=== PATIENT | female | born 1955 | race Caucasian/White ===

== ENCOUNTER 2019-02-18 19:34 | Emergency (ER) | payer MEDICAID ==
[~2019-02-18] VITALS: Ht 167.6 cm; Wt 54.5 kg
[2019-02-18 19:40] VITALS: BP 178/111
--- NOTE | 2019-02-18 19:50 | NUR ---
PT PLACED WITHIN VIEW OF NURSES STATION IN WHEELCHAIR FOR PT SAFETY TRIAGE NOTES THAT PT HAS BEEN DRINKING.
--- NOTE | 2019-02-18 19:52 | NUR ---
PT REQUESTING FOOD AND STATING SHE WANTS TO LEAVE, ENCOURAGED TO STAY, AWAITING ERP. PT UP TO BR WITH STEADY GAIT.
--- NOTE | 2019-02-18 20:03 | NUR ---
PT ELOPED FROM ER, ENCOURAGED TO WAIT FOR ERP ASSESSMENT.
== END 2019-02-18 20:39 | disposition left against medical advice (07) ==
LOC: ED 20:19
DX: R51 Headache (principal); Z53.21 Procedure and treatment not carried out due to patient leaving prior to being seen by health care provider

== ENCOUNTER 2019-11-11 17:17 | Inpatient (IN) | payer MEDICAID, OTHER ==
[~2019-11-11] VITALS: Ht 165.1 cm; Wt 56.8 kg
--- NOTE | 2019-11-11 17:44 | NUR ---
TO ROOM FROM [facility]. EKG COMPLETE.
--- NOTE | 2019-11-11 18:16 | NUR ---
PT BIB [facility] FOR C/O PALPITATIONS. PT WAS AT THE [facility] AND BEGAN TO FEEL ABNORMAL AND WEAK, SHE SAT ON THE BENCH AND COULDT GET UP. PT DENIES CP, SOB. PT DOES STATES SHE FEELS SLIGHTLY ANXIOUS AND HAS FOR THE LAST FEW WEEKS. PT ALSO REPORTS RECENT HX OF DIARRHEA X3 WEEKS. PT TO CARD MONITOR, CONT PULSE OX AND BP
[2019-11-11] MEDS ORDERED: THIAMINE 100MG TABLET ONE (18:21)
[2019-11-11] MEDS ORDERED: SODIUM CHLORIDE 0.9% 1,000ML IVBOLUS ONE (18:30)
[2019-11-11] MEDS: PLEASE ENTER ALLERGIES MC SCH ×2 (18:30→22:22)
[2019-11-11] MEDS ORDERED: THIAMINE 100MG TABLET PO ONE (18:30)
[2019-11-11] MEDS ORDERED: SODIUM CHLORIDE FLUSH 10ML SYR IVF ONE (18:30)
[2019-11-11 18:44] LABS: BASOPHILS # (AUTO) 0.03 x10^3/uL (0-0.1); BASOPHILS % (AUTO) 1 % (0-1); EOSINOPHILS # (AUTO) 0.02 x10^3/uL (0-0.4); EOSINOPHILS % (AUTO) 0 % (1-7); LYMPHOCYTES # (AUTO) 1.32 x10^3/uL (1-3.4); LYMPHOCYTES % (AUTO) 19 % (22-44); MD NO; MEAN CORPUSCULAR HEMOGLOBIN 34.2 pg (27.0-34.8); MEAN CORPUSCULAR HGB CONC 33.8 g/dL (32.4-35.8); MEAN CORPUSCULAR VOLUME 101.3 fL (80-100); MEAN PLATELET VOLUME 7.8 fL (7.4-10.4); MONOCYTES # (AUTO) 0.58 x10^3/uL (0.2-0.8); MONOCYTES % (AUTO) 8 % (2-9); NEUTROPHILS # (AUTO) 5.09 x10^3/uL (1.8-6.8); NEUTROPHILS % (AUTO) 72 % (42-75); PLATELET COUNT 242 x10^3/uL (130-400); RED BLOOD COUNT 3.14 x10^6/uL (3.82-5.3); RED CELL DISTRIBUTION WIDTH 17.1 % (9.6-15.2)
[2019-11-11 18:56] LABS: ALANINE AMINOTRANSFERASE 54 U/L (12-78); ANION GAP 10 mmol/L (5-15); CALCIUM 8.9 mg/dL (8.5-10.1); CHLORIDE 98 mmol/L (98-107)
[2019-11-11 19:04] LABS: ALKALINE PHOSPHATASE 75 U/L (45-117); BILIRUBIN,TOTAL 0.9 mg/dL (0.2-1.0); CREATININE 1.62 mg/dL (0.55-1.02); TOTAL PROTEIN 7.8 g/dL (6.4-8.2); TROPONIN I < 0.015 ng/mL (0.000-0.045)
--- NOTE | 2019-11-11 19:42 | NUR ---
PATIENT ASSISTED TO USED BEDSIDE COMMODE, VERY SHAKY. URINE OBTAINED AND SENT TO LAB.
--- NOTE | 2019-11-11 19:57 | NUR ---
PATIENT TOO WEAK AND UNSTEADY TO AMBULATE. AWARE.
[2019-11-11 20:09] LABS: MICROSCOPIC AUTO
--- NOTE | 2019-11-11 20:11 | NUR ---
RECEIVED PATIENT WITH SKIN TEAR ON HER LEFT FOREARM, NON ADHERENT DRESSING APPLIED.
[2019-11-11 20:14] LABS: CULTURE INDICATED? YES
[2019-11-11 20:20] LABS: AMPHETAMINE SCREEN, URINE Negative (Negative); BARBITURATE SCREEN, URINE Negative (Negative); BENZODIAZEPINE SCREEN, URINE Positive (Negative); CANNABINOID SCREEN, URINE Negative (Negative); COCAINE SCREEN, URINE Negative (Negative); METHADONE SCREEN, URINE Negative (Negative); OPIATE SCREEN, URINE Negative (Negative)
--- NOTE | 2019-11-11 20:46 | NUR ---
BED ASSIGNED. REPORT TO CHEYENNE CORTES.
[2019-11-11 21:05] VITALS: BP 151/92
[2019-11-11] MEDS ORDERED: DOCUSATE 100 MG CAPSULE PO PRN (22:00)
[2019-11-11] MEDS ORDERED: LIDODERM 5% PATCH TD PRN (22:00)
[2019-11-11] MEDS ORDERED: ONDANSETRON ODT 4 MG PO PRN (22:00)
[2019-11-11] MEDS ORDERED: hydrALAzine 20 MG/ML, 1ML IVPush PRN (22:00)
[2019-11-11] MEDS: HEPARIN 5,000 UNITS/ML, 1ML SQ SCH (22:30)
[2019-11-11] MEDS: TIZANIDINE 4MG TABLET PO SCH (22:41)
[2019-11-11] MEDS ORDERED: LIDODERM REMOVE PATCH NOTE XX PRN (23:00)
[2019-11-11] MEDS: TEMAZEPAM 15 MG CAPSULE PO PRN (23:05)
[2019-11-11] MEDS ORDERED: MAGNESIUM SULFATE PMX 4GM/100M 100 ML IV ONE (23:30)
[2019-11-12 01:10] LABS: TROPONIN I < 0.015 ng/mL (0.000-0.045)
[2019-11-12 01:59] VITALS: BP 113/76
[2019-11-12] MEDS: HEPARIN 5,000 UNITS/ML, 1ML SQ SCH ×3 (04:42→21:56)
[2019-11-12 07:34] LABS: BASOPHILS # (AUTO) 0.02 x10^3/uL (0-0.1); BASOPHILS % (AUTO) 1 % (0-1); EOSINOPHILS # (AUTO) 0.32 x10^3/uL (0-0.4); EOSINOPHILS % (AUTO) 8 % (1-7); LYMPHOCYTES # (AUTO) 1.42 x10^3/uL (1-3.4); LYMPHOCYTES % (AUTO) 35 % (22-44); MD NO; MEAN CORPUSCULAR HEMOGLOBIN 33.9 pg (27.0-34.8); MEAN CORPUSCULAR HGB CONC 32.8 g/dL (32.4-35.8); MEAN CORPUSCULAR VOLUME 103.3 fL (80-100); MEAN PLATELET VOLUME 7.8 fL (7.4-10.4); MONOCYTES # (AUTO) 0.48 x10^3/uL (0.2-0.8); MONOCYTES % (AUTO) 12 % (2-9); NEUTROPHILS # (AUTO) 1.88 x10^3/uL (1.8-6.8); NEUTROPHILS % (AUTO) 46 % (42-75); PLATELET COUNT 191 x10^3/uL (130-400); RED BLOOD COUNT 2.81 x10^6/uL (3.82-5.3); RED CELL DISTRIBUTION WIDTH 17.2 % (9.6-15.2)
[2019-11-12 07:43] LABS: ANION GAP 9 mmol/L (5-15); CALCIUM 8.2 mg/dL (8.5-10.1); CHLORIDE 102 mmol/L (98-107); CREATININE 1.45 mg/dL (0.55-1.02)
[2019-11-12 07:45] VITALS: BP 128/80
[2019-11-12 07:47] LABS: TROPONIN I < 0.015 ng/mL (0.000-0.045)
[2019-11-12] MEDS: PLEASE ENTER ALLERGIES MC SCH (10:30)
[2019-11-12] MEDS: TIZANIDINE 4MG TABLET PO SCH ×2 (10:30→21:56)
[2019-11-12 13:15] VITALS: BP 109/71
[2019-11-12] MEDS: SODIUM CHLORIDE 0.9% 1,000 ML IV SCH (16:42)
[2019-11-12 20:21] VITALS: BP 144/93
[2019-11-12] MEDS: TEMAZEPAM 15 MG CAPSULE PO PRN (21:56)
[2019-11-12] MEDS: ACETAMINOPHEN 325 MG TABLET PO PRN (21:56)
[2019-11-13 01:10] VITALS: BP 112/75
[2019-11-13] MEDS: SODIUM CHLORIDE 0.9% 1,000 ML IV SCH ×2 (03:32→11:22)
[2019-11-13 07:13] LABS: ANION GAP 8 mmol/L (5-15); CALCIUM 7.9 mg/dL (8.5-10.1); CHLORIDE 105 mmol/L (98-107)
[2019-11-13 07:41] VITALS: BP 159/96
[2019-11-13] MEDS: TIZANIDINE 4MG TABLET PO SCH ×2 (08:06→21:00)
[2019-11-13] MEDS: HEPARIN 5,000 UNITS/ML, 1ML SQ SCH ×3 (08:07→21:00)
[2019-11-13] MEDS: ACETAMINOPHEN 325 MG TABLET PO PRN (11:21)
[2019-11-13 12:46] VITALS: BP 143/85
[2019-11-13 19:18] VITALS: BP 165/101
[2019-11-13 20:58] VITALS: BP 165/94
[2019-11-13] MEDS: TEMAZEPAM 15 MG CAPSULE PO PRN (21:00)
[2019-11-14 01:31] VITALS: BP 149/93
[2019-11-14] MEDS: HEPARIN 5,000 UNITS/ML, 1ML SQ SCH ×4 (05:19→22:04)
[2019-11-14 06:42] VITALS: BP 169/101
[2019-11-14] MEDS ORDERED: ATEN50TA41 PO (08:36)
[2019-11-14] MEDS ORDERED: LOSA25TA12 PO (08:36)
[2019-11-14] MEDS ORDERED: LISI-170 PO (08:36)
[2019-11-14] MEDS ORDERED: TIZA4TAB2 PO (08:36)
[2019-11-14] MEDS ORDERED: LORA-445 PO (08:36)
[2019-11-14] MEDS ORDERED: OMEP-110 PO (08:36)
[2019-11-14] MEDS ORDERED: SERT-237 PO (08:36)
[2019-11-14] MEDS: TIZANIDINE 4MG TABLET PO SCH ×2 (08:43→20:02)
[2019-11-14] MEDS ORDERED: LORazepam 0.5MG TABLET PO PRN (09:30)
[2019-11-14] MEDS: OMEPRAZOLE 20 MG CAPSULE.DR PO SCH ×2 (09:53→20:02)
[2019-11-14] MEDS: AMOXICILLIN/CLAV 875-125MG TABLET PO SCH ×2 (09:53→20:02)
[2019-11-14] MEDS: ATENOLOL 50 MG TABLET PO SCH (09:53)
[2019-11-14] MEDS: SERTRALINE 50MG TABLET PO SCH (09:53)
[2019-11-14 13:03] VITALS: BP 164/93
[2019-11-14] MEDS: ACETAMINOPHEN 325 MG TABLET PO PRN (15:09)
[2019-11-14 19:39] VITALS: BP 173/104
[2019-11-14 22:33] VITALS: BP 152/83
[2019-11-14] MEDS: TEMAZEPAM 15 MG CAPSULE PO PRN (22:34)
[2019-11-15 00:33] VITALS: BP 146/91
[2019-11-15] MEDS: ACETAMINOPHEN 325 MG TABLET PO PRN ×2 (00:43→17:15)
[2019-11-15] MEDS: HEPARIN 5,000 UNITS/ML, 1ML SQ SCH ×3 (05:45→20:30)
[2019-11-15 07:24] VITALS: BP 164/95
[2019-11-15] MEDS: AMOXICILLIN/CLAV 875-125MG TABLET PO SCH ×2 (09:00→20:29)
[2019-11-15] MEDS: TIZANIDINE 4MG TABLET PO SCH ×2 (09:04→20:29)
[2019-11-15] MEDS: SERTRALINE 50MG TABLET PO SCH (09:04)
[2019-11-15] MEDS: ATENOLOL 50 MG TABLET PO SCH (09:04)
[2019-11-15] MEDS: OMEPRAZOLE 20 MG CAPSULE.DR PO SCH ×2 (09:04→20:29)
[2019-11-15 14:30] VITALS: BP 158/90
[2019-11-15 18:57] VITALS: BP 153/86
[2019-11-15] MEDS: TEMAZEPAM 15 MG CAPSULE PO PRN (22:28)
[2019-11-16 02:00] VITALS: BP 146/89
[2019-11-16] MEDS: HEPARIN 5,000 UNITS/ML, 1ML SQ SCH ×3 (04:54→21:51)
[2019-11-16 06:15] VITALS: BP 147/85
[2019-11-16] MEDS: OMEPRAZOLE 20 MG CAPSULE.DR PO SCH ×2 (08:11→20:24)
[2019-11-16] MEDS: AMOXICILLIN/CLAV 875-125MG TABLET PO SCH ×2 (08:11→20:24)
[2019-11-16] MEDS: ATENOLOL 50 MG TABLET PO SCH (08:12)
[2019-11-16] MEDS: TIZANIDINE 4MG TABLET PO SCH ×2 (08:12→20:24)
[2019-11-16] MEDS: SERTRALINE 50MG TABLET PO SCH (08:12)
[2019-11-16 08:19] LABS: ANION GAP 7 mmol/L (5-15); CALCIUM 8.9 mg/dL (8.5-10.1); CHLORIDE 104 mmol/L (98-107)
[2019-11-16 08:20] LABS: CREATININE 1.07 mg/dL (0.55-1.02)
[2019-11-16 12:35] VITALS: BP 147/87
[2019-11-16] MEDS: ACETAMINOPHEN 325 MG TABLET PO PRN (14:55)
[2019-11-16 20:16] VITALS: BP 156/86
[2019-11-16] MEDS: SULFAMETH./TRIMETHOPRIM DS 800MG/160MG TABLET PO SCH (20:24)
[2019-11-16] MEDS: TEMAZEPAM 15 MG CAPSULE PO PRN (21:47)
[2019-11-17 01:56] VITALS: BP 137/85
[2019-11-17] MEDS: HEPARIN 5,000 UNITS/ML, 1ML SQ SCH ×3 (04:31→20:12)
[2019-11-17 07:12] VITALS: BP 122/79
[2019-11-17 07:23] LABS: ANION GAP 9 mmol/L (5-15); CALCIUM 9.1 mg/dL (8.5-10.1); CHLORIDE 104 mmol/L (98-107); CREATININE 1.22 mg/dL (0.55-1.02)
[2019-11-17 07:31] LABS: BASOPHILS # (AUTO) 0.02 x10^3/uL (0-0.1); BASOPHILS % (AUTO) 1 % (0-1); EOSINOPHILS % (AUTO) 8 % (1-7); LYMPHOCYTES # (AUTO) 1.33 x10^3/uL (1-3.4); LYMPHOCYTES % (AUTO) 33 % (22-44); MD NO; MEAN CORPUSCULAR HEMOGLOBIN 33.5 pg (27.0-34.8); MEAN CORPUSCULAR HGB CONC 32.7 g/dL (32.4-35.8); MEAN CORPUSCULAR VOLUME 102.4 fL (80-100); MEAN PLATELET VOLUME 8.3 fL (7.4-10.4); MONOCYTES # (AUTO) 0.61 x10^3/uL (0.2-0.8); MONOCYTES % (AUTO) 15 % (2-9); NEUTROPHILS # (AUTO) 1.79 x10^3/uL (1.8-6.8); NEUTROPHILS % (AUTO) 44 % (42-75); PLATELET COUNT 283 x10^3/uL (130-400); RED BLOOD COUNT 3.35 x10^6/uL (3.82-5.3); RED CELL DISTRIBUTION WIDTH 15.8 % (9.6-15.2)
[2019-11-17] MEDS: AMOXICILLIN/CLAV 875-125MG TABLET PO SCH ×2 (08:19→20:05)
[2019-11-17] MEDS: OMEPRAZOLE 20 MG CAPSULE.DR PO SCH ×2 (08:19→20:05)
[2019-11-17] MEDS: ATENOLOL 50 MG TABLET PO SCH (08:19)
[2019-11-17] MEDS: SERTRALINE 50MG TABLET PO SCH (08:19)
[2019-11-17] MEDS: TIZANIDINE 4MG TABLET PO SCH ×2 (08:19→20:05)
[2019-11-17] MEDS: SULFAMETH./TRIMETHOPRIM DS 800MG/160MG TABLET PO SCH ×2 (08:20→20:05)
[2019-11-17] MEDS: ACETAMINOPHEN 325 MG TABLET PO PRN ×2 (14:02→20:10)
[2019-11-17 16:08] VITALS: BP 102/70
[2019-11-17 20:26] VITALS: BP 115/75
[2019-11-17] MEDS: TEMAZEPAM 15 MG CAPSULE PO PRN (22:36)
[2019-11-18 01:33] VITALS: BP 125/79
[2019-11-18 06:34] LABS: BASOPHILS # (AUTO) 0.02 x10^3/uL (0-0.1); BASOPHILS % (AUTO) 1 % (0-1); EOSINOPHILS # (AUTO) 0.29 x10^3/uL (0-0.4); EOSINOPHILS % (AUTO) 7 % (1-7); LYMPHOCYTES # (AUTO) 1.53 x10^3/uL (1-3.4); LYMPHOCYTES % (AUTO) 37 % (22-44); MD NO; MEAN CORPUSCULAR HEMOGLOBIN 33.4 pg (27.0-34.8); MEAN CORPUSCULAR HGB CONC 32.9 g/dL (32.4-35.8); MEAN CORPUSCULAR VOLUME 101.6 fL (80-100); MEAN PLATELET VOLUME 8.5 fL (7.4-10.4); MONOCYTES # (AUTO) 0.72 x10^3/uL (0.2-0.8); MONOCYTES % (AUTO) 18 % (2-9); NEUTROPHILS # (AUTO) 1.55 x10^3/uL (1.8-6.8); NEUTROPHILS % (AUTO) 38 % (42-75); PLATELET COUNT 282 x10^3/uL (130-400); RED BLOOD COUNT 3.12 x10^6/uL (3.82-5.3); RED CELL DISTRIBUTION WIDTH 15.6 % (9.6-15.2)
[2019-11-18 06:41] LABS: ANION GAP 7 mmol/L (5-15); CHLORIDE 104 mmol/L (98-107); CREATININE 1.32 mg/dL (0.55-1.02)
[2019-11-18] MEDS: HEPARIN 5,000 UNITS/ML, 1ML SQ SCH ×3 (06:52→22:37)
[2019-11-18 08:04] VITALS: BP 138/77
[2019-11-18] MEDS: AMOXICILLIN/CLAV 875-125MG TABLET PO SCH ×2 (08:05→20:36)
[2019-11-18] MEDS: ATENOLOL 50 MG TABLET PO SCH (08:06)
[2019-11-18] MEDS: SULFAMETH./TRIMETHOPRIM DS 800MG/160MG TABLET PO SCH (08:06)
[2019-11-18] MEDS: TIZANIDINE 4MG TABLET PO SCH ×2 (08:06→20:36)
[2019-11-18] MEDS: OMEPRAZOLE 20 MG CAPSULE.DR PO SCH ×2 (08:06→20:36)
[2019-11-18] MEDS: SERTRALINE 50MG TABLET PO SCH (08:06)
[2019-11-18 14:28] VITALS: BP 118/73
[2019-11-18] MEDS: ACETAMINOPHEN 325 MG TABLET PO PRN (14:37)
[2019-11-18] MEDS ORDERED: AMOX1TAB12 PO (16:50)
[2019-11-18 18:50] VITALS: BP 114/72
[2019-11-18] MEDS: TEMAZEPAM 15 MG CAPSULE PO PRN (22:37)
[2019-11-19 00:43] VITALS: BP 108/70
[2019-11-19 05:07] LABS: ANION GAP 5 mmol/L (5-15); CALCIUM 8.8 mg/dL (8.5-10.1); CHLORIDE 104 mmol/L (98-107); CREATININE 1.46 mg/dL (0.55-1.02)
[2019-11-19 05:10] LABS: MEAN CORPUSCULAR HEMOGLOBIN 33.6 pg (27.0-34.8); MEAN CORPUSCULAR VOLUME 101.6 fL (80-100); MEAN PLATELET VOLUME 8.1 fL (7.4-10.4); PLATELET COUNT 318 x10^3/uL (130-400); RED BLOOD COUNT 3.05 x10^6/uL (3.82-5.3); RED CELL DISTRIBUTION WIDTH 16.1 % (9.6-15.2)
[2019-11-19 05:38] LABS: MD YES
[2019-11-19 05:39] LABS: EOS#(MANUAL) 0.21 x10^3/uL (0.0-0.4); EOS% (MANUAL) 5 % (1-7); LYMPH#(MANUAL) 1.64 x10^3/uL (1-3.4); LYMPHS% (MANUAL) 39 % (22-44); MONOS#(MANUAL) 0.84 x10^3/uL (0.3-2.7); MONOS% (MANUAL) 20 % (2-9); SEG#(MANUAL) 1.51 x10^3/uL (1.8-6.8); SEGS% (MANUAL) 36 % (42-75)
[2019-11-19 05:40] LABS: <PLATELET ESTIMATE> ADEQUATE; <PLT MORPHOLOGY> NORMAL PLT MORPH; ANISOCYTOSIS 1+
[2019-11-19] MEDS: HEPARIN 5,000 UNITS/ML, 1ML SQ SCH ×3 (06:16→22:38)
[2019-11-19 08:03] VITALS: BP 110/70
[2019-11-19] MEDS: AMOXICILLIN/CLAV 875-125MG TABLET PO SCH ×2 (10:06→21:01)
[2019-11-19] MEDS: OMEPRAZOLE 20 MG CAPSULE.DR PO SCH ×2 (10:06→21:02)
[2019-11-19] MEDS: TIZANIDINE 4MG TABLET PO SCH ×2 (10:06→21:02)
[2019-11-19] MEDS: SERTRALINE 50MG TABLET PO SCH (10:07)
[2019-11-19] MEDS: ATENOLOL 50 MG TABLET PO SCH (10:07)
[2019-11-19 12:32] VITALS: BP 129/79
[2019-11-19] MEDS: ACETAMINOPHEN 325 MG TABLET PO PRN ×2 (14:57→21:01)
[2019-11-19 20:39] VITALS: BP 124/75
[2019-11-19] MEDS: TEMAZEPAM 15 MG CAPSULE PO PRN (22:37)
[2019-11-20 01:03] VITALS: BP 118/73
[2019-11-20] MEDS: HEPARIN 5,000 UNITS/ML, 1ML SQ SCH ×2 (06:25→16:00)
[2019-11-20 06:29] LABS: ANION GAP 9 mmol/L (5-15); CALCIUM 9.3 mg/dL (8.5-10.1); CHLORIDE 105 mmol/L (98-107); CREATININE 1.23 mg/dL (0.55-1.02); MEAN CORPUSCULAR HEMOGLOBIN 33.7 pg (27.0-34.8); MEAN CORPUSCULAR HGB CONC 33.1 g/dL (32.4-35.8); MEAN CORPUSCULAR VOLUME 101.9 fL (80-100); PLATELET COUNT 344 x10^3/uL (130-400); RED BLOOD COUNT 3.18 x10^6/uL (3.82-5.3); RED CELL DISTRIBUTION WIDTH 15.8 % (9.6-15.2)
[2019-11-20 06:47] LABS: MD YES
[2019-11-20 06:49] LABS: ANISOCYTOSIS 1+; LYMPH#(MANUAL) 2.07 x10^3/uL (1-3.4); LYMPHS% (MANUAL) 56 % (22-44); MONOS#(MANUAL) 0.22 x10^3/uL (0.3-2.7); MONOS% (MANUAL) 6 % (2-9); SEG#(MANUAL) 1.41 x10^3/uL (1.8-6.8); SEGS% (MANUAL) 38 % (42-75)
[2019-11-20 06:50] LABS: <PLATELET ESTIMATE> ADEQUATE; <PLT MORPHOLOGY> NORMAL PLT MORPH; HYPOCHROMIA 1+
[2019-11-20 08:01] VITALS: BP 139/77
[2019-11-20] MEDS: TIZANIDINE 4MG TABLET PO SCH (09:00)
[2019-11-20] MEDS: ATENOLOL 50 MG TABLET PO SCH (09:00)
[2019-11-20] MEDS: SERTRALINE 50MG TABLET PO SCH (09:00)
[2019-11-20] MEDS: AMOXICILLIN/CLAV 875-125MG TABLET PO SCH (09:00)
[2019-11-20] MEDS: OMEPRAZOLE 20 MG CAPSULE.DR PO SCH (09:00)
[2019-11-20 12:36] VITALS: BP 108/74
== END 2019-11-20 18:10 | disposition home or self-care (01) | DRG 689 ==
LOC: ED 21:04 → 4WST 21:10
PROVIDERS: ADMIT Family Medicine; ATTEND Hospitalist
DX: N39.0 Urinary tract infection, site not specified (principal); N17.0 Acute kidney failure with tubular necrosis; E87.1 Hypo-osmolality and hyponatremia; L03.114 Cellulitis of left upper limb; D53.9 Nutritional anemia, unspecified; E83.42 Hypomagnesemia; B95.62 Methicillin resistant Staphylococcus aureus infection as the cause of diseases classified elsewhere; G89.29 Other chronic pain; I12.9 Hypertensive chronic kidney disease with stage 1 through stage 4 chronic kidney disease, or unspecified chronic kidney disease; K52.9 Noninfective gastroenteritis and colitis, unspecified; N18.9 Chronic kidney disease, unspecified; R29.6 Repeated falls; R62.7 Adult failure to thrive; S51.812A Laceration without foreign body of left forearm, initial encounter; X58.XXXA Exposure to other specified factors, initial encounter; Y93.89 Activity, other specified; Y92.89 Other specified places as the place of occurrence of the external cause; Y99.8 Other external cause status; Z82.49 Family history of ischemic heart disease and other diseases of the circulatory system; Z82.3 Family history of stroke
CPT/HCPCS: 36415; 71045; 80048; 80053; 80307; 81001; 82607; 83036; 83605; 83735; 84443; 84484; 85025; 87070; 87077; 87086; 87147; 87186; 87205; 93005; 93306; 93356; 96360; G0378; J1644; J0360; J3475; J7030

== ENCOUNTER 2020-02-14 13:48 | Emergency (ER) | payer SELFPAY ==
[~2020-02-14] VITALS: Ht 165.1 cm; Wt 70.0 kg
[~2020-02-14 13:48] MED LIST: AMOX1TAB12 PO; ATEN50TA41 PO; LISI-170 PO; LORA-445 PO; LOSA25TA12 PO; OMEP-110 PO; SERT-237 PO; TIZA4TAB2 PO
--- NOTE | 2020-02-14 14:09 | NUR ---
BIB BY [facility] FROM HOME FOR 01/14 SUBSTERNAL CHEST PAIN X 2 DAYS. LEFT AMA FROM [facility] FOR SAME YESTERDAY D/T SOCIAL SITUATION. GIVEN ASA BY [facility] ECG OBTAINED ALSO COMPLAINING OF SORE THROAT/COUGH
[2020-02-14 15:11] LABS: MD YES; MEAN CORPUSCULAR HEMOGLOBIN 34.3 pg (27.0-34.8); MEAN CORPUSCULAR HGB CONC 33.5 g/dL (32.4-35.8); MEAN CORPUSCULAR VOLUME 102.3 fL (80-100); MEAN PLATELET VOLUME 8.4 fL (7.4-10.4); PLATELET COUNT 337 x10^3/uL (130-400); RED BLOOD COUNT 3.68 x10^6/uL (3.82-5.3); RED CELL DISTRIBUTION WIDTH 15.9 % (9.6-15.2)
[2020-02-14 15:14] LABS: ALANINE AMINOTRANSFERASE 57 U/L (12-78); ALBUMIN 3.4 g/dL (3.4-5.0); ANION GAP 13 mmol/L (5-15); CALCIUM 8.8 mg/dL (8.5-10.1); CHLORIDE 101 mmol/L (98-107); CREATININE 1.62 mg/dL (0.55-1.02)
--- NOTE | 2020-02-14 15:18 | NUR ---
ORACLE SPECIALIST: DOG IN [facility]. WALKED AND PLAYED WITH AND RTD TO [facility]. FRESH WATER IN [place]
[2020-02-14 15:19] LABS: ALKALINE PHOSPHATASE 107 U/L (45-117); BILIRUBIN,TOTAL 0.3 mg/dL (0.2-1.0); TOTAL PROTEIN 7.6 g/dL (6.4-8.2); TROPONIN I < 0.015 ng/mL (0.000-0.045)
--- NOTE | 2020-02-14 15:21 | NUR ---
Pt ambulated to the restroom with steady gait. Went over results. Pt has no pain at this time.
[2020-02-14 15:54] LABS: BASOS#(MANUAL) 0.08 x10^3/uL (0-0.1); BASOS% (MANUAL) 2 % (0-1); EOS#(MANUAL) 0.13 x10^3/uL (0.0-0.4); EOS% (MANUAL) 3 % (1-7); LYMPH#(MANUAL) 1.64 x10^3/uL (1-3.4); LYMPHS% (MANUAL) 39 % (22-44); MONOS#(MANUAL) 0.55 x10^3/uL (0.3-2.7); MONOS% (MANUAL) 13 % (2-9); SEG#(MANUAL) 1.81 x10^3/uL (1.8-6.8); SEGS% (MANUAL) 43 % (42-75)
[2020-02-14 15:57] LABS: <PLATELET ESTIMATE> ADEQUATE; <PLT MORPHOLOGY> NORMAL PLT MORPH
[2020-02-14 16:36] VITALS: BP 147/81
--- NOTE | 2020-02-14 16:51 | NUR ---
DOG RTD TO PATIENT
== END 2020-02-14 16:37 | disposition home or self-care (01) ==
LOC: ED 13:58
DX: I27.20 Pulmonary hypertension, unspecified (principal); K82.8 Other specified diseases of gallbladder; I13.10 Hypertensive heart and chronic kidney disease without heart failure, with stage 1 through stage 4 chronic kidney disease, or unspecified chronic kidney disease; N18.9 Chronic kidney disease, unspecified
CPT/HCPCS: 36415; 71045; 80053; 83880; 84145; 84484; 85025; 93005; 99285

== ENCOUNTER 2020-02-14 17:37 | Emergency (ER) | payer MEDICAID, OTHER ==
--- NOTE | 2020-02-14 17:50 | NUR ---
BULB PACKER AWARE OF PT/COMPLAINT. VITAL STABLE. PT SPEAKING IN FULL SENTENCES WO DIFFICULTY. SPO2 >90% ON RA. PT LOBBIED AFTER TRIAGE.
--- NOTE | 2020-02-14 18:24 | NUR ---
YARD DRIVER: PT AMBULATORY TO ROOM FROM [facility]. PTS DOG PLACED IN [place]. WATER AVAILABLE IN [place] FOR DOG.
[2020-02-14] MEDS ORDERED: ONDANSETRON ODT 4 MG PO ONE (19:00)
[2020-02-14] MEDS ORDERED: ONDANSETRON ODT 4 MG ONE (19:07)
[2020-02-14 19:12] LABS: BASOPHILS # (AUTO) 0.04 x10^3/uL (0-0.1); BASOPHILS % (AUTO) 1 % (0-1); EOSINOPHILS # (AUTO) 0.06 x10^3/uL (0-0.4); EOSINOPHILS % (AUTO) 2 % (1-7); LYMPHOCYTES # (AUTO) 1.21 x10^3/uL (1-3.4); LYMPHOCYTES % (AUTO) 29 % (22-44); MD NO; MEAN CORPUSCULAR HEMOGLOBIN 33.8 pg (27.0-34.8); MEAN CORPUSCULAR HGB CONC 32.8 g/dL (32.4-35.8); MEAN CORPUSCULAR VOLUME 103.3 fL (80-100); MEAN PLATELET VOLUME 8.3 fL (7.4-10.4); MONOCYTES # (AUTO) 0.78 x10^3/uL (0.2-0.8); MONOCYTES % (AUTO) 19 % (2-9); NEUTROPHILS # (AUTO) 2.04 x10^3/uL (1.8-6.8); NEUTROPHILS % (AUTO) 50 % (42-75); PLATELET COUNT 373 x10^3/uL (130-400)
[2020-02-14 19:23] LABS: ALANINE AMINOTRANSFERASE 59 U/L (12-78); ALBUMIN 3.5 g/dL (3.4-5.0); ANION GAP 9 mmol/L (5-15); CALCIUM 8.9 mg/dL (8.5-10.1); CHLORIDE 102 mmol/L (98-107)
[2020-02-14 19:26] LABS: ALKALINE PHOSPHATASE 109 U/L (45-117); BILIRUBIN,TOTAL 0.3 mg/dL (0.2-1.0); CREATININE 2.04 mg/dL (0.55-1.02); TOTAL PROTEIN 7.7 g/dL (6.4-8.2)
--- NOTE | 2020-02-14 20:29 | NUR ---
"PT HAD VODKA IN BED WITH HER WHEN SHE WENT TO CT"- PER LAST WAXER CT ASKED IF I COULD FIND RN TO FIGURE OUT WHAT TO DO. WHEN I TOLD PT WE NEEDED TO TAKE IT FROM HER AND SHE COULD HAVE IT BACK ON DISCHARGE, SHE SAID "YOU CAN JUST DUMP IT OUT. I DONT WANT IT" I ASKED IF SHE WAS SURE AND PT CONFIRMED "PLEASE JUST DUMP IT OUT." VODKA EMPTIED IN SINK IN PT ROOM IN FRONT OF PT
[2020-02-14 22:14] VITALS: BP 144/74
== END 2020-02-14 22:15 | disposition home or self-care (01) ==
LOC: ED 20:29
DX: I12.9 Hypertensive chronic kidney disease with stage 1 through stage 4 chronic kidney disease, or unspecified chronic kidney disease (principal); N18.9 Chronic kidney disease, unspecified; R10.84 Generalized abdominal pain; R11.2 Nausea with vomiting, unspecified; R07.89 Other chest pain; I51.7 Cardiomegaly; Z72.9 Problem related to lifestyle, unspecified
CPT/HCPCS: 36415; 74176; 80053; 83690; 85025; 93005; 99285; Q0162

== ENCOUNTER 2020-02-28 21:25 | Emergency (ER) | payer MEDICARE, OTHER ==
[~2020-02-28] VITALS: Ht 165.1 cm; Wt 76.0 kg
--- NOTE | 2020-02-28 21:51 | NUR ---
THIS TECH DID EKG
[2020-02-28] MEDS ORDERED: SODIUM CHLORIDE 0.9% 1,000ML IVBOLUS ONE (22:00)
[2020-02-28] MEDS ORDERED: SODIUM CHLORIDE FLUSH 10ML SYR IVF ONE (22:00)
[2020-02-28 22:22] LABS: BASOPHILS # (AUTO) 0.07 x10^3/uL (0-0.1); BASOPHILS % (AUTO) 1 % (0-1); EOSINOPHILS # (AUTO) 0.07 x10^3/uL (0-0.4); EOSINOPHILS % (AUTO) 1 % (1-7); LYMPHOCYTES # (AUTO) 2.24 x10^3/uL (1-3.4); LYMPHOCYTES % (AUTO) 30 % (22-44); MD NO; MEAN CORPUSCULAR HEMOGLOBIN 33.6 pg (27.0-34.8); MEAN CORPUSCULAR HGB CONC 33.3 g/dL (32.4-35.8); MEAN CORPUSCULAR VOLUME 100.9 fL (80-100); MEAN PLATELET VOLUME 7.9 fL (7.4-10.4); MONOCYTES # (AUTO) 0.98 x10^3/uL (0.2-0.8); MONOCYTES % (AUTO) 13 % (2-9); NEUTROPHILS # (AUTO) 4.09 x10^3/uL (1.8-6.8); NEUTROPHILS % (AUTO) 55 % (42-75); PLATELET COUNT 523 x10^3/uL (130-400); RED BLOOD COUNT 3.33 x10^6/uL (3.82-5.3); RED CELL DISTRIBUTION WIDTH 15.6 % (9.6-15.2)
[2020-02-28 22:31] LABS: ANION GAP 12 mmol/L (5-15); CALCIUM 8.6 mg/dL (8.5-10.1); CHLORIDE 100 mmol/L (98-107); CREATININE 2.22 mg/dL (0.55-1.02)
[2020-02-28 22:32] LABS: ALBUMIN 3.5 g/dL (3.4-5.0)
[2020-02-28 22:36] LABS: TROPONIN I < 0.015 ng/mL (0.000-0.045)
--- NOTE | 2020-02-28 23:30 | NUR ---
PATIENT AMBULATORY TO RESTROOM WITHOUT COMPLICATIONS, STEADY GAIT. NO NOTED ACUTE DISTRESS.
[2020-02-29 00:33] VITALS: BP 147/74
--- NOTE | 2020-02-29 00:40 | NUR ---
Patient/Caregiver given discharge instructions and they have confirmed that they understand the instructions. Patient ambulatory with steady gait.
== END 2020-02-29 00:41 | disposition home or self-care (01) ==
LOC: ED 02-29 00:10
DX: R06.00 Dyspnea, unspecified (principal); F10.129 Alcohol abuse with intoxication, unspecified; R00.0 Tachycardia, unspecified; R07.9 Chest pain, unspecified; I10 Essential (primary) hypertension; Z91.19 Patient's noncompliance with other medical treatment and regimen; Y90.9 Presence of alcohol in blood, level not specified
CPT/HCPCS: 36415; 71045; 80048; 80307; 82040; 84484; 85025; 85379; 93005; 99285; J7030

== ENCOUNTER 2020-07-16 12:00 | Inpatient (IN) | payer SELFPAY ==
[~2020-07-16] VITALS: Ht 165.1 cm; Wt 69.6 kg
--- NOTE | 2020-07-16 12:17 | NUR ---
PT BROUGHT IN BY [facility] FROM CAR AT [facility] FOR CHIEF COMPLAINT OF "BEING COLD" AND INTERMITTENT SOB FOR ONE WEEK. PT ARRIVED A&O, ADMITS TO ETOH.
[2020-07-16] MEDS ORDERED: SODIUM CHLORIDE FLUSH 10ML SYR IVF ONE ×2 (13:00→17:00)
[2020-07-16 13:32] LABS: BASOPHILS % (AUTO) 0 % (0-1); EOSINOPHILS % (AUTO) 0 % (1-7); LYMPHOCYTES % (AUTO) 15 % (22-44); MEAN CORPUSCULAR HEMOGLOBIN 30.7 pg (27.0-34.8); MEAN CORPUSCULAR HGB CONC 31.9 g/dL (32.4-35.8); MEAN PLATELET VOLUME 7.7 fL (7.4-10.4); MONOCYTES % (AUTO) 14 % (2-9); NEUTROPHILS % (AUTO) 70 % (42-75); PLATELET COUNT 162 x10^3/uL (130-400); RED BLOOD COUNT 3.75 x10^6/uL (3.82-5.3); RED CELL DISTRIBUTION WIDTH 14.7 % (9.6-15.2)
[2020-07-16 13:42] LABS: ALANINE AMINOTRANSFERASE 21 U/L (12-78); ALBUMIN 3.3 g/dL (3.4-5.0); ANION GAP 14 mmol/L (5-15); CALCIUM 8.2 mg/dL (8.5-10.1); CHLORIDE 102 mmol/L (98-107); CREATININE 1.16 mg/dL (0.55-1.02); MD NO
[2020-07-16 13:46] LABS: ALKALINE PHOSPHATASE 122 U/L (45-117); BILIRUBIN,TOTAL 0.5 mg/dL (0.2-1.0); TOTAL PROTEIN 7.7 g/dL (6.4-8.2); TROPONIN I < 0.015 ng/mL (0.000-0.045)
--- NOTE | 2020-07-16 14:04 | NUR ---
PT RESTING IN BED, NO COMPLAINTS AT THIS TIME.
[2020-07-16] MEDS ORDERED: OMNIPAQUE 350 MG/ML, 75ML BOTTLE ONE (15:06)
--- NOTE | 2020-07-16 15:07 | NUR ---
pt to cta
--- NOTE | 2020-07-16 15:57 | NUR ---
PT RESTING IN BED CALL LIGTH IN REACH
--- NOTE | 2020-07-16 16:29 | NUR ---
JANET STONE AT BEDSIDE FOR EVALUATION
[2020-07-16] MEDS ORDERED: SODIUM CHLORIDE 0.9% 1,000ML IVBOLUS ONE (17:00)
[2020-07-16] MEDS ORDERED: THIAMINE 100 MG in SODIUM CHLORIDE 0.9% 50 ML IVPB ONE (17:00)
[2020-07-16] MEDS ORDERED: LORazepam 2 MG/ML, 1ML ONE (17:02)
[2020-07-16] MEDS: LORazepam 2 MG/ML, 1ML IVPush PRN ×2 (17:04→23:56)
--- NOTE | 2020-07-16 17:09 | NUR ---
RECEIVED BEDSIDE REPORT AND CARE FROM STACY QUINN. IVF INFUSING PER ORDER. VSS. CONT PULSE OX, BP, CARDIAC MONITORS IN PLACE. ST ON MONITOR. AWAITING THIAMINE FROM PHARMACY. CALL LIGHT IN REACH. FALL PRECAUTIONS IN PLACE. A&OX4.
--- NOTE | 2020-07-16 17:30 | NUR ---
PT PROVIDED WATER PER MD ORDER, TOLERATING PO WELL. VSS. CALL LIGHT IN REACH
--- NOTE | 2020-07-16 17:55 | NUR ---
THIAMINE RECEIVED FROM PHARMACY. [employer] CALLED FOR IV PUMP FOR INFUSION, AWAITING IV PUMP. 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 UPDATED ON PT STATUS
--- NOTE | 2020-07-16 18:35 | NUR ---
PT CALLED [employer] ARCHITECT LIGHT, REPORTS "I DEFECATED ALL OVER MYSELF AND THE FLOOR, I TRIED TO GET UP BUT DIDN'T MAKE IT FAR. PT REMOVED ALL MONITORS. IV REMAINS IN PLACE, PATENT. IVF COMPLETED. PT CLEANSED OF ALL STOOL AND PROVIDED BEDSIDE COMMODE. PT RESTING IN POSITION OF COMFORT.CLEAN LINENS AND ANTONIO PAD IN PLACE. ALL MONITORS REPLACED. ST ON MONITOR. VSS. DISCUSSED HR WITH ERP, AWARE, NO NEW ORDERS RECEIVED, CONTINUE AWAITING IV PUMP FOR IV THIAMINE. NO TREMORS NOTED AT THIS TIME. A&OX4. CALL LIGHT IN REACH. FALL PRECAUTIONS IN PLACE.
--- NOTE | 2020-07-16 19:30 | NUR ---
IV PUMP RECEIVED, IV THIAMINE INFUSING PER MD ORDER ON IV PUMP. VSS. REMAINS ST ON MONITOR S/P FLUIDS, DISCUSSED WITH ERP AWARE, NO NEW ORDERS RECEIVED AT THIS TIME. PT REQUESTING "DINNER." TO DISCUSS WITH ERP. CALL LIGHT IN REACH. FALL PRECAUTIONS IN PLACE.
--- NOTE | 2020-07-16 19:58 | NUR ---
MEAL TRAY ORDERED PER DR. CHASE HANNA. CONTINUES TOLERATING PO WELL. PT REMAINS ST ON MONITOR. MD AWARE, NO NEW ORDERS RECEIVED. IV THIAMINE INFUSING ON IV PUMP STILL. DENIES NEED TO USE RESTROOM. PT TO BE DISCHARGED AFTER MEAL TRAY AND IV THIAMINE PER .
--- NOTE | 2020-07-16 20:20 | NUR ---
PT DESTATED TO 84% ON RA. PLACED ON 2L NC O2, PULSE OX 99%. DR. HOLLY TO BEDSIDE TO DISCUSS POC AND EVAL PT. PT TO BE ADMITTED, AGREES TO POC, AWAITING ROOM ASSIGNMENT ON FLOOR. DENIES NEED TO USE RESTROOM. VSS. ST ON MONITOR, RATE 115-125. PT PROVIDED REGULAR DIET TRAY, EATING AND DRINKING WITHOUT ANY DIFFICULTY. NO TREMORS NOTED OR REPORTED AT THIS TIME. CALL LIGHT IN REACH. FALL PRECAUTIONS IN PLACE
[2020-07-16] MEDS: HEPARIN 5,000 UNITS/ML, 1ML SQ SCH ×2 (20:30→23:31)
[2020-07-16] MEDS ORDERED: SODIUM CHLORIDE FLUSH 10ML SYR IVF PRN (20:30)
[2020-07-16] MEDS ORDERED: SODIUM CHLORIDE 0.9% 1,000 ML IV SCH (20:30)
[2020-07-16] MEDS ORDERED: LABETALOL 5MG/ML, 20ML IVPush PRN (20:30)
[2020-07-16] MEDS ORDERED: ONDANSETRON 2MG/ML, 2ML IVPush PRN (20:30)
[2020-07-16] MEDS ORDERED: LORazepam 2 MG/ML, 1ML IV PRN ×5 (20:30)
[2020-07-16] MEDS ORDERED: DOCUSATE 100 MG CAPSULE PO PRN (20:30)
[2020-07-16] MEDS: OMEPRAZOLE 20 MG CAPSULE.DR PO SCH ×2 (21:00→23:31)
--- NOTE | 2020-07-16 21:05 | NUR ---
MEDICATIONS REQUESTED FROM PHARMACY
--- NOTE | 2020-07-16 21:47 | NUR ---
ROOM 512 RECEIVED, ATTEMPTED TO CALL REPORT TO KARLO QUINN AT THIS TIME.
--- NOTE | 2020-07-16 21:58 | NUR ---
PHONE/VERBAL REPORT TO FLOOR CHEYENNE DIETRICH AT THIS TIME. PT READY FOR TRANSPORT.
[2020-07-16 22:33] VITALS: BP 163/96
[2020-07-16] MEDS: POTASSIUM CHLORIDE 20 MEQ, MAGNESIUM SULFATE 1 GM, THIAMINE 200 MG, FOLIC ACID 1 MG, MV... IV SCH (23:31)
[2020-07-17 02:53] VITALS: BP 150/94
[2020-07-17] MEDS: HEPARIN 5,000 UNITS/ML, 1ML SQ SCH ×3 (04:30→20:18)
[2020-07-17 05:05] LABS: BASOPHILS % (AUTO) 0 % (0-1); EOSINOPHILS % (AUTO) 1 % (1-7); LYMPHOCYTES % (AUTO) 20 % (22-44); MEAN CORPUSCULAR HEMOGLOBIN 31.4 pg (27.0-34.8); MONOCYTES % (AUTO) 18 % (2-9); NEUTROPHILS % (AUTO) 61 % (42-75); PLATELET COUNT 125 x10^3/uL (130-400); RED BLOOD COUNT 3.26 x10^6/uL (3.82-5.3); RED CELL DISTRIBUTION WIDTH 14.3 % (9.6-15.2)
[2020-07-17 05:15] LABS: CALCIUM 8.3 mg/dL (8.5-10.1); CHLORIDE 104 mmol/L (98-107)
[2020-07-17 05:19] LABS: ANION GAP 4 mmol/L (5-15); CREATININE 0.95 mg/dL (0.55-1.02)
[2020-07-17 05:24] LABS: MD NO
[2020-07-17] MEDS: LOSARTAN 25MG TABLET PO SCH (08:12)
[2020-07-17] MEDS: CHLORDIAZEPOXIDE 25 MG CAPSULE PO SCH ×4 (08:12→20:18)
[2020-07-17] MEDS: ATENOLOL 50 MG TABLET PO SCH (08:12)
[2020-07-17] MEDS: OMEPRAZOLE 20 MG CAPSULE.DR PO SCH ×2 (08:12→20:18)
[2020-07-17] MEDS: SERTRALINE 50MG TABLET PO SCH (08:12)
[2020-07-17 08:42] VITALS: BP 161/99
[2020-07-17] MEDS ORDERED: POTASSIUM PHOSPHATE 44 MEQ in SODIUM CHLORIDE 0.9% 500 ML IV ONE (11:30)
[2020-07-17 13:32] VITALS: BP 146/84
[2020-07-17 15:02] LABS: CLOSTRIDIUM DIFFICILE ANTIGEN POSITIVE; CLOSTRIDIUM DIFFICILE TOXIN NEGATIVE (Negative)
[2020-07-17 15:49] LABS: OCCULT BLOOD NEGATIVE (NEGATIVE)
[2020-07-17 19:25] VITALS: BP 145/85
[2020-07-17] MEDS: POTASSIUM CHLORIDE 20 MEQ, MAGNESIUM SULFATE 1 GM, THIAMINE 200 MG, FOLIC ACID 1 MG, MV... IV SCH (21:17)
[2020-07-18 01:49] VITALS: BP 128/83
[2020-07-18] MEDS: HEPARIN 5,000 UNITS/ML, 1ML SQ SCH ×2 (02:10→12:11)
[2020-07-18] MEDS: CHLORDIAZEPOXIDE 25 MG CAPSULE PO SCH ×4 (05:33→22:09)
[2020-07-18 05:39] LABS: BASOPHILS % (AUTO) 0 % (0-1); EOSINOPHILS % (AUTO) 5 % (1-7); LYMPHOCYTES % (AUTO) 27 % (22-44); MEAN CORPUSCULAR HGB CONC 32.3 g/dL (32.4-35.8); MEAN PLATELET VOLUME 8.1 fL (7.4-10.4); MONOCYTES % (AUTO) 17 % (2-9); NEUTROPHILS % (AUTO) 51 % (42-75); PLATELET COUNT 108 x10^3/uL (130-400); RED BLOOD COUNT 3.21 x10^6/uL (3.82-5.3); RED CELL DISTRIBUTION WIDTH 14.6 % (9.6-15.2)
[2020-07-18] MEDS: LORazepam 2 MG/ML, 1ML IVPush PRN ×2 (05:43→22:10)
[2020-07-18 05:44] LABS: MD NO
[2020-07-18 05:49] LABS: ANION GAP 5 mmol/L (5-15); CALCIUM 7.9 mg/dL (8.5-10.1); CHLORIDE 103 mmol/L (98-107)
[2020-07-18 05:50] LABS: CREATININE 0.88 mg/dL (0.55-1.02)
[2020-07-18] MEDS ORDERED: MAGNESIUM SULFATE PMX 2GM/50ML 50 ML IV ONE (06:30)
[2020-07-18] MEDS ORDERED: FOLIC ACID 1 MG TABLET PO ONE (07:00)
[2020-07-18 07:19] VITALS: BP 149/91
[2020-07-18] MEDS: SERTRALINE 50MG TABLET PO SCH (08:59)
[2020-07-18] MEDS: LOSARTAN 25MG TABLET PO SCH (08:59)
[2020-07-18] MEDS: ATENOLOL 50 MG TABLET PO SCH (08:59)
[2020-07-18] MEDS: THIAMINE 100MG TABLET PO SCH ×2 (08:59→22:09)
[2020-07-18] MEDS: OMEPRAZOLE 20 MG CAPSULE.DR PO SCH ×2 (09:00→22:09)
[2020-07-18 12:22] VITALS: BP 141/91
[2020-07-18 12:35] LABS: MICROSCOPIC AUTO
[2020-07-18 20:05] VITALS: BP 158/90
[2020-07-18] MEDS: VANCOMYCIN 50 MG/ML ORAL SUSP PO SCH (23:14)
[2020-07-19 01:40] VITALS: BP 150/94
[2020-07-19] MEDS: CHLORDIAZEPOXIDE 25 MG CAPSULE PO SCH ×4 (05:22→20:33)
[2020-07-19] MEDS: VANCOMYCIN 50 MG/ML ORAL SUSP PO SCH ×3 (05:22→16:46)
[2020-07-19 05:59] LABS: BASOPHILS % (AUTO) 0 % (0-1); EOSINOPHILS % (AUTO) 6 % (1-7); LYMPHOCYTES % (AUTO) 21 % (22-44); MEAN CORPUSCULAR HEMOGLOBIN 31.1 pg (27.0-34.8); MEAN CORPUSCULAR HGB CONC 32.5 g/dL (32.4-35.8); MEAN PLATELET VOLUME 8.6 fL (7.4-10.4); MONOCYTES % (AUTO) 18 % (2-9); NEUTROPHILS % (AUTO) 56 % (42-75); PLATELET COUNT 120 x10^3/uL (130-400); RED BLOOD COUNT 3.26 x10^6/uL (3.82-5.3); RED CELL DISTRIBUTION WIDTH 14.8 % (9.6-15.2)
[2020-07-19 06:01] LABS: ALBUMIN 2.7 g/dL (3.4-5.0); ANION GAP 4 mmol/L (5-15); CALCIUM 8.4 mg/dL (8.5-10.1); CHLORIDE 103 mmol/L (98-107)
[2020-07-19 06:06] LABS: ALANINE AMINOTRANSFERASE 52 U/L (12-78); ALKALINE PHOSPHATASE 113 U/L (45-117); BILIRUBIN,TOTAL 0.6 mg/dL (0.2-1.0); CREATININE 1.12 mg/dL (0.55-1.02); TOTAL PROTEIN 6.6 g/dL (6.4-8.2)
[2020-07-19 06:14] LABS: MD NO
[2020-07-19 08:25] VITALS: BP 157/93
[2020-07-19] MEDS: SERTRALINE 50MG TABLET PO SCH (09:14)
[2020-07-19] MEDS: THIAMINE 100MG TABLET PO SCH ×2 (09:14→20:33)
[2020-07-19] MEDS: ATENOLOL 50 MG TABLET PO SCH (09:14)
[2020-07-19] MEDS: LOSARTAN 25MG TABLET PO SCH (09:14)
[2020-07-19] MEDS: OMEPRAZOLE 20 MG CAPSULE.DR PO SCH ×2 (09:14→20:33)
[2020-07-19] MEDS ORDERED: LACTATED RINGERS 1,000 ML IV SCH (09:30)
[2020-07-19 12:45] VITALS: BP 151/91
[2020-07-19 20:17] VITALS: BP 151/91
[2020-07-20] MEDS: VANCOMYCIN 50 MG/ML ORAL SUSP PO SCH ×3 (00:02→11:06)
[2020-07-20 01:00] VITALS: BP 171/94
[2020-07-20 03:30] VITALS: BP 163/98
[2020-07-20] MEDS: CHLORDIAZEPOXIDE 25 MG CAPSULE PO SCH (05:40)
[2020-07-20 06:34] LABS: CHLORIDE 104 mmol/L (98-107)
[2020-07-20 06:43] LABS: ANION GAP 7 mmol/L (5-15); CALCIUM 8.7 mg/dL (8.5-10.1); CREATININE 1.01 mg/dL (0.55-1.02)
[2020-07-20 08:00] VITALS: BP 162/86
[2020-07-20] MEDS ORDERED: MAGNESIUM SULFATE PMX 2GM/50ML 50 ML IV ONE (08:00)
[2020-07-20] MEDS: OMEPRAZOLE 20 MG CAPSULE.DR PO SCH (08:21)
[2020-07-20] MEDS: ATENOLOL 50 MG TABLET PO SCH (08:21)
[2020-07-20] MEDS: SERTRALINE 50MG TABLET PO SCH (08:21)
[2020-07-20] MEDS: LOSARTAN 25MG TABLET PO SCH (08:21)
[2020-07-20] MEDS: THIAMINE 100MG TABLET PO SCH (08:22)
[2020-07-20] MEDS ORDERED: VANC125C3 PO (12:12)
[2020-07-20 12:32] VITALS: BP 142/91
[2020-07-20] MEDS ORDERED: CHLORDIAZEPOXIDE 25 MG CAPSULE PO SCH (21:00)
== END 2020-07-20 15:47 | disposition home or self-care (01) | DRG 189 ==
LOC: ED 20:40 → EDIP 21:28 → 5SO 22:28 → 3N 07-19 18:21
PROVIDERS: ADMIT Family Medicine; ATTEND Internal Medicine
DX: J96.01 Acute respiratory failure with hypoxia (principal); F10.239 Alcohol dependence with withdrawal, unspecified; E04.1 Nontoxic single thyroid nodule; E86.0 Dehydration; F32.9 Major depressive disorder, single episode, unspecified; F41.9 Anxiety disorder, unspecified; I10 Essential (primary) hypertension; I49.3 Ventricular premature depolarization; I71.2 Thoracic aortic aneurysm, without rupture; I71.4 Abdominal aortic aneurysm, without rupture; J84.10 Pulmonary fibrosis, unspecified; Z59.0 Homelessness; Z79.899 Other long term (current) drug therapy; Z86.79 Personal history of other diseases of the circulatory system
CPT/HCPCS: 36415; 96361; 96365; 96375; 99285; J3370; 71045; 71275; 80048; 80053; 81001; 82272; 83690; 83735; 84100; 84484; 85025; 85379; 87086; 87324; 87493; 93005; G0378; J1644; J2405; J3411; J3475; J3480; Q9967; J2060; J7030; J7040; J7120